=== PATIENT | female | born 1930 | race Caucasian/White ===

== ENCOUNTER → 2017-07-03 | Outpatient (CLI) | payer MEDICARE ==
[2014-11-03 15:50] VITALS: BMI 17.1
[~2017-07-03] MED LIST: ACET-1966 PO; ACET-2031 PO; ACET-2043 PO; ACET500T68 PO; ACET650S5 PO; AMLO-96 PO; AMLO-99 PO; Acetaminophen PO; BACI1CAP4; BACI1CAP4 PO; CALC-707 PO; CALTRATE 600 +1 EAC1 PO; CELE-1 PO; CELE200C7 PO; CEPH-13 PO; CEPH500C24 PO; CHOL200022 PO; CHOL400D7 PO; CIPR-345 PO; DEN60I SUBQ; DEXT1DRO15 OP; DOCU-202 PO; DOCU-416 PO; DOCU100T19 PO; DOCU50LI19 PO; ESCI10TA8 PO; HYDR28.486 TP; LACT1CAP12; LACT1CAP74 PO; LACT237L63 PEG; LEVO250T55 PO; LOPE2CAP88 PO; LOSA50TA72 PO; LOSA50TA73 PO; Losartan Potassium PO; METH4TAB66 PO; MIRT-22 PO; MIRT7.5T2 PO; MOM PO; MULT-1 PO; MULT-27 PO; NITR-1 PO; PARO10TA80 PO; POLY119P24 PO; POLY500P2 MC; POTA10TA PO; PRE50 PO; PREG25 PO; PREG50CA48 PO; RANI75TA5 PO; SUCR1TAB51 PO; SULF-197 PO; SULF-198 PO; TRAM-420 PO; TRI05T TP; [UNRECOGNIZED DRUG - CODE] OP; [UNRECOGNIZED DRUG - CODE] PO
== END ==
LOC: ZZSPRING 01:44
PROVIDERS: ATTEND Nurse Practitioner Family
DX: R63.4 Abnormal weight loss (principal); F03.90 Unspecified dementia, unspecified severity, without behavioral disturbance, psychotic disturbance, mood disturbance, and anxiety; G62.9 Polyneuropathy, unspecified
CPT/HCPCS: 36415; 82040; 82247; 82310; 82374; 82435; 82565; 82947; 84075; 84132; 84155; 84295; 84443; 84450; 84460; 84520; 85027

== ENCOUNTER → 2017-07-06 | Outpatient (CLI) | payer MEDICARE ==
[2014-11-03 15:50] VITALS: BMI 17.1
[~2017-07-06] MED LIST changes: +BENZ200C15 PO
[2017-07-06 16:01] LABS: PLATELET COUNT, AUTOMATED 191 K/uL (150-450)
--- NOTE | 2017-07-06 16:37 | RADIOLOGY IMAGING REPORT ---
FACILITY: [facility] PATIENT NAME: Gerber Bhandari : 1930 MR: [id number] V: [id number] EXAM DATE: ORDERING PHYSICIAN: CHANNING MCINTYRE TECHNOLOGIST: Location: [facility] Patient: Gerber Bhandari : 1930 Visit/Account:[id number] Date of Sevice: 07/06/2017 Study: Frontal and lateral views of the chest Indication: Cough Comparison study: January 25, 2017 Findings: PA and lateral views of the chest demonstrate no evidence of acute infiltrate. There is no evidence of pleural effusion. There is no evidence of pneumothorax. The mediastinal, cardiac, and diaphragmatic contours are unremarkable. There is a moderate-sized hia tus hernia present. 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 IMPRESSION: No acute cardiopulmonary abnormality. Report Dictated By: Luis A Duong at 07/06/2017 4:33 PM Report E-Signed By: Luis A Duong at 07/06/2017 4:34 PM WSN:[id number]
== END ==
LOC: LAB 15:37
PROVIDERS: ATTEND Nurse Practitioner Primary Care
DX: R05 Cough (principal); Z96.611 Presence of right artificial shoulder joint; M19.90 Unspecified osteoarthritis, unspecified site
CPT/HCPCS: 36415; 71046; 82040; 82247; 82310; 82374; 82435; 82565; 82947; 84075; 84132; 84155; 84295; 84450; 84460; 84520; 85025

== ENCOUNTER → 2017-10-23 | Outpatient (CLI) | payer MEDICARE ==
[2014-11-03 15:50] VITALS: BMI 17.1
[~2017-10-23] MED LIST changes: +ACET-9 PO; +ESCI5SOL4 PO; +MIRT-27 SL; +POLY8.5P PO; +SULF20OR7 PO
== END ==
LOC: ZZSPRING 01:30
PROVIDERS: ATTEND Nurse Practitioner Family
DX: R63.4 Abnormal weight loss (principal); Z79.899 Other long term (current) drug therapy
CPT/HCPCS: 36415; 82040; 82247; 82310; 82374; 82435; 82565; 82947; 84075; 84132; 84155; 84295; 84443; 84450; 84460; 84520; 85027